=== PATIENT | female | born 1955 | race American Indian/Alaskan Native ===

== ENCOUNTER 2017-12-16 13:21 | Outpatient (CLI) | payer BC, OTHER ==
--- NOTE | 2017-12-16 14:15 | Mammography Report ---
Bilateral mammogram: The patient denies any current symptoms or other breast findings. The patient has a heterogeneously dense breasts asymmetrically denser in the upper outer right breast. There are scattered and loosely clustered calcifications bilaterally but significantly greater on the right than left. No suspicious shaped identified. There is a faint circumscribed density behind the left areola. Compared to prior exams dating back to 2014 there are no significant changes identified. CAD used. Impression: Stable breast pattern. No currently suspicious findings. Recommendation: Annual mammogram followup. Ultrasound not performed at this time due to lack of symptoms and no interval change in mammogram. This was explained to the patient. BI-RADS CATEGORY: 2 = Benign ACR BI-RADS MAMMOGRAPHIC CODES: 0 = Needs additional imaging evaluation; 1 = Negative; 2 = Benign; 3 = Probably benign; 4 = Suspicious; 5 = Malignant; 6 = Known biopsy-proven malignancy COMMENT: 1. Dense breast tissue, i.e., adenosis, fibrocystic changes, etc., may obscure an underlying neoplasm. 2. Approximately 10% of cancers are not detected with mammography. 3. A negative mammography report should not delay biopsy if a clinically suspicious mass is present.
== END 2017-12-16 13:22 | disposition home or self-care (01) ==
LOC: SPVWC 13:21
PROVIDERS: ATTEND Family Medicine
DX: N63.0 Unspecified lump in unspecified breast (principal); R92.1 Mammographic calcification found on diagnostic imaging of breast
CPT/HCPCS: 77066

== ENCOUNTER 2018-12-23 08:07 | Outpatient (CLI) | payer BC ==
--- NOTE | 2018-12-23 10:06 | Mammography Report ---
BILATERAL DIGITAL SCREENING MAMMOGRAM with CAD : 12/23/18 08:07:00 CLINICAL: Routine screening. COMPARISON:12/16/17 and mammograms going back to 05/16/14 FINDINGS: The breasts are heterogeneously dense, which may obscure small masses.An oval partially circumscribed 2.4 cm low-density left retroareolar mass is not significantly changed compared to previous exams. Bilateral scattered benign calcifications. No new mass, architectural distortion or suspicious calcifications. IMPRESSION: No mammographic evidence of malignancy. BI-RADS CATEGORY: 2 -- Benign RECOMMENDATION: Routine mammographic screening in one year. COMMENT: Patient follow-up letters are generated by our [employer] application.
== END 2018-12-23 08:08 | disposition home or self-care (01) ==
LOC: SPVWC 08:07
PROVIDERS: ATTEND Family Medicine
DX: Z12.31 Encounter for screening mammogram for malignant neoplasm of breast (principal)
CPT/HCPCS: 77067

== ENCOUNTER 2019-05-19 10:23 | Outpatient (CLI) | payer BC ==
--- NOTE | 2019-05-19 13:13 | Ultrasound Report ---
RIGHT DIGITAL DIAGNOSTIC MAMMOGRAM with CAD and RIGHT BREAST ULTRASOUND: 05/19/19 10:23:00 CLINICAL: Right palpable breast lump. COMPARISON:12/23/18 mammogram FINDINGS: The breasts are heterogeneously dense, which may obscure small masses.An irregular partially circumscribed 1.8 cm mass of the upper outer quadrant approximately 17 cm from the nipple correlates with the palpable lump felt by the patient. A second irregular 1.5 cm outer mass has better defined margins on the CC views. There are also new suspicious pleomorphic calcifications in the outer breast. The span of calcifications in best imaged on a spot CC view and they span at least 7 cm. Ultrasound of the right breast (including all four quadrants and the retroareolar area) was performed. An irregular solid hypoechoic palpable mass at 10 o'clock 8 cm from the nipple measures 1.3 x 1.4 x 1.2 cm and correlates with the more anterior mammographic mass. An oval slightly irregular solid hypoechoic mass at 10 o'clock 14 cm from the nipple correlates with what the patient feels. It measures 1.7 x 1.2 x 1.3 cm. This correlates with the larger and more posterior mammographic mass. An oval relatively anechoic cyst at 6 o'clock 4 cm from the nipple measures 6 mm. A benign cyst at 8 o'clock 6 cm from the nipple measures 7 x 6 x 4 mm. Ultrasound of the right axilla demonstrated at least 2 abnormal suspicious lymph nodes with abnormal morphology and no central fat. The largest measures 1.5 x 1.3 x 1.0 cm. IMPRESSION: Two suspicious right breast masses and at least 2 suspicious right axillary lymph nodes. Additional suspicious calcifications in the outer breast. BI-RADS CATEGORY: 5 - - Highly Suggestive of Malignancy RECOMMENDATION: Ultrasound guided needle biopsy of the 2 most suspicious masses. I discussed the findings and my recommendation (two needle core biopsies of the right breast) with the patient at the time of the examination. COMMENT: 1. Dense breast tissue, i.e., adenosis, fibrocystic changes, etc., may obscure an underlying neoplasm. 2. Approximately 10% of cancers are not detected with mammography. 3. A negative mammography report should not delay biopsy if a clinically suspicious mass is present. COMMENT: Patient follow-up letters are generated by our [employer] application. COMMENT: 1. Dense breast tissue, i.e., adenosis, fibrocystic changes, etc., may obscure an underlying neoplasm. 2. Approximately 10% of cancers are not detected with mammography. 3. A negative mammography report should not delay biopsy if a clinically suspicious mass is present. COMMENT: Patient follow-up letters are generated via our [employer] application.
== END 2019-05-19 10:24 | disposition home or self-care (01) ==
LOC: SPVWC 10:23
PROVIDERS: ATTEND Family Medicine
DX: N63.10 Unspecified lump in the right breast, unspecified quadrant (principal)

== ENCOUNTER 2019-05-31 13:13 | Outpatient (CLI) | payer BC, MEDICARE ==
--- NOTE | 2019-05-31 15:32 | Ultrasound Report ---
ULTRASOUND-GUIDED RIGHT BREAST BIOPSY WITH MARKER AT 2 SITES HISTORY: Right breast masses. CONSENT: Informed written consent obtained. PROCEDURE: The 2 previously described right upper outer breast masses were identified by ultrasound. The skin wa s cleansed with chlorhexidine. Using ultrasound guidance, 1% lidocaine for skin and superficial anest hesia and 2% lidocaine with epinephrine for deep anesthesia, a 14-gauge biopsies were performed at 10 :00 8 cm from the nipple and at 10:00 14 cm from the nipple. Multiple cores were obtained using a 14- gauge achieve biopsy device and specimens were placed in formalin. Hemostasis was achieved with minim al effort and sterile dressings were applied. The patient tolerated the procedure well and there were no apparent complications. A postprocedure mammogram demonstrated satisfactory clip deployment at 2 sites. IMPRESSION Technically successful and uncomplicated ultrasound-guided right breast needle biopsy with marker tony cement at 2 sites. Signer Name: Guille Maxwell MD Signed: 05/31/2019 4:27 PM Workstation Name: [id number]
--- NOTE | 2019-05-31 15:33 | Mammography Report ---
RIGHT BREAST DIAGNOSTIC MAMMOGRAM HISTORY: RT POST CLIP COMPARISON: 05/31/2019 FINDINGS: Biopsy clips are identified within masses at 10:00 8 cm from the nipple and at 10:00 14 cm from the n ipple.IMPRESSION Concordant clip placement after ultrasound guided needle biopsy at 2 sites. BIRADS 5: Highly suggestive of malignancy Signer Name: Guille Maxwell MD Signed: 05/31/2019 4:29 PM Workstation Name: [id number]
== END 2019-05-31 13:14 | disposition home or self-care (01) ==
LOC: SPVWC 13:13
PROVIDERS: ATTEND Surgery
DX: C50.411 Malignant neoplasm of upper-outer quadrant of right female breast (principal); Z79.899 Other long term (current) drug therapy
CPT/HCPCS: 19083; 19084; 77065; 88305; 88342; A4648; 88341

== ENCOUNTER 2019-06-14 14:26 | Outpatient (CLI) | payer MEDICARE | END 2019-06-14 14:27 | disposition home or self-care (01) | LOC: LABHHL 14:26 | PROVIDERS: ATTEND Surgery | DX: D36.0 Benign neoplasm of lymph nodes (principal) | CPT/HCPCS: 88305; 88341; 88342 ==

== ENCOUNTER 2019-06-21 09:40 | Outpatient (CLI) | payer MEDICARE ==
--- NOTE | 2019-06-22 13:06 | Magnetic Resonance Report ---
BILATERAL BREAST MR WITHOUT AND WITH GADOLINIUM INDICATION: Newly diagnosed right breast cancer. Status post ultrasound-guided biopsy of breast mass es at 10:00 8 cm from the nipple and at 10:00 14 cm from the nipple on 06/17/2019. Pathology: Invasive carcinoma NOS with overall grade III. Both lesions have identical pathology. COMPARISONS: 05/19/2019 and 12/23/2018 mammograms TECHNIQUE: Axial 1.0 mm T1 without, axial high-resolution 2.0 mm T2 and axial 1.0 mm dynamic vibrant high-resolution postcontrast T1 fat saturation sequences on a 1.5 Kindra magnet. The examination was p erformed with an 8-channel dedicated [place] breast coil. Post-processing with CAD and subtraction was performed on an Design [employer] workstation. 20 cc of MultiHance was injected without incident for the con trast portion of the exam. Consent was obtained prior to the administration of the contrast. FINDINGS: RIGHT BREAST: Marked background parenchymal enhancement. Lesion 1 is an irregular enhancing mass in t he upper outer quadrant 14.7 cm from the nipple measuring 2.2 x 1.7 x 2.5 cm. It contains a biopsy cl ip and correlates with the previously biopsied lesion farthest from the nipple. It demonstrates heter ogeneous enhancement with mixed kinetics, 172% peak enhancement and 46% type III washout. Lesion 2 is an irregular enhancing mass in the upper outer quadrant 9.2 cm from the nipple measuring 1.6 x 1.6 x 1.4 cm. It demonstrates heterogeneous enhancement with mixed kinetics, 131% peak enhancement and 31% type III washout.Too numerous to count enhancing masses are identified in the upper outer quadrant a nd these masses have similar enhancement patterns as the 2 known cancers. The mass closest to the nip ple is approximately 6 cm from the nipple and measures 1.1 x 0.7 x 0.6 cm. The masses span approximat ko 11 cm in the AP dimension. Several right axillary lymph nodes have suspicious morphology. The largest measures 1.7 x 0.7 cm and there is adjacent biopsy clip. This lymph node correlates with the previous metastatic lymph node whi ch was biopsied by Dr. Lomeli on 06/14/2019. LEFT BREAST: Mild background parenchymal enhancement. No mass or suspicious enhancement. A benign int ramammary lymph node at 12:00 5 cm from the nipple measures 4 x 3 x 2 mm. No suspicious left axillary or left internal mammary lymph nodes. IMPRESSION: 1. Multicentric right breast cancer with too numerous to count masses in the upper outer quadrant. 2. Right axillary lymph node metastasis. 3. Negative left breast and no suspicious left axillary or left internal mammary lymph nodes. BI-RADS 6 -- Known Cancer Signer Name: Guille Maxwell MD Signed: 06/22/2019 1:02 PM Workstation Name: [id number]
== END 2019-06-21 09:41 | disposition home or self-care (01) ==
LOC: SPVIMAG 09:40
PROVIDERS: ATTEND Surgery
DX: C77.3 Secondary and unspecified malignant neoplasm of axilla and upper limb lymph nodes (principal); C50.411 Malignant neoplasm of upper-outer quadrant of right female breast
CPT/HCPCS: A9577; C8908; 77049

== ENCOUNTER 2019-06-23 09:01 | Day surgery (SDC) | payer MEDICARE ==
[2019-06-23] MEDS ORDERED: MARCAINE 0.25% INFILTRATI ONE ×3 (09:23→11:32)
[2019-06-23] MEDS ORDERED: NACL 0.9% 100 ML ONE (09:23)
[2019-06-23] MEDS ORDERED: HEPARIN 10,000 UNITS/10 ML ONE (09:23)
[2019-06-23] MEDS ORDERED: XYLOCAINE 1% 20 mL ONE (09:24)
--- NOTE | 2019-06-23 09:53 | Anesthesia Consultation ---
Anesthesia Consult and Med Hx Date of service: 06/23/19 - Airway Anesthetic Teeth Evaluation: Good ROM Head & Neck: Adequate Mental/Hyoid Distance: Adequate Mallampati Class: Class II Intubation Access Assessment: Good - Pulmonary Exam CTA: Yes - Cardiac Exam Cardiac Exam: RRR - Pre-Operative Health Status ASA Pre-Surgery Classification: ASA2 Proposed Anesthetic Plan: MAC (Pt with breast Ca for port placement under MAC) - Pulmonary Hx Smoking: No Hx Sleep Apnea: No (SUHAIL PRE SCREEN LOW RISK) - Cardiovascular System Hx Hypertension: Yes (WAS GIVEN RX , BUT NEVER STARTED IT) - Hematic Hx Anemia: Yes (NOT RECENT)
--- NOTE | 2019-06-23 09:54 | Anesthesia Day of Surgery ---
Anesthesia Day of Surgery - Day of Surgery Patient Examined: Yes Patient H&P Reviewed: Yes Patient is NPO: Yes
[2019-06-23] MEDS ORDERED: DILAUDID IV PRN (09:55)
[2019-06-23] MEDS ORDERED: VERSED IV NR (10:00)
[2019-06-23] MEDS ORDERED: LACTATED RINGERS 1,000 ML IV SCH (10:00)
[2019-06-23] MEDS ORDERED: XYLOCAINE MPF 2% ONE (10:16)
[2019-06-23] MEDS ORDERED: ZOFRAN ONE (10:16)
[2019-06-23] MEDS ORDERED: DIPRIVAN 10 MG/ML IV ONE (10:17)
[2019-06-23] MEDS ORDERED: SUBLIMAZE ONE (10:18)
[2019-06-23] MEDS ORDERED: DECADRON ONE (11:28)
[2019-06-23] MEDS ORDERED: ANCEF/STERILE WATER 2 GM/20 ML IV NR (11:30)
[2019-06-23] MEDS ORDERED: XYLOCAINE 1% 20 mL INFILTRATI ONE ×2 (11:32)
[2019-06-23] MEDS ORDERED: NACL 0.9% IV ONE (11:45)
[2019-06-23] MEDS ORDERED: HEPARIN 10,000 UNITS/10 ML IV ONE (11:45)
[2019-06-23] MEDS ORDERED: HEPARIN 10,000 UNITS/10 ML IR ONE (12:10)
[2019-06-23] MEDS ORDERED: TORADOL ONE (12:12)
[2019-06-23] MEDS ORDERED: NEO SYNEPHRINE ONE (12:12)
--- NOTE | 2019-06-23 13:03 | Fluoroscopy Report ---
CHEST 1 VIEW INDICATION / CLINICAL INFORMATION: RT BREAST CANCER. Port placement. COMPARISON: None available. FINDINGS: SUPPORT DEVICES: Left Port-A-Cath has been placed with the tip projecting over the right atrium. HEART / MEDIASTINUM: No significant abnormality. LUNGS / PLEURA: No significant pulmonary or pleural abnormality. No pneumothorax. ADDITIONAL FINDINGS: No significant additional findings. IMPRESSION: 1. Left Port-A-Cath in expected position. Signer Name: Vicky Bishop MD Signed: 06/23/2019 12:59 PM Workstation Name: [id number]
[2019-06-23 13:27] VITALS: BP 128/90
--- NOTE | 2019-06-23 13:37 | Short Stay Summary ---
Short Stay Documentation Date of service: 06/23/19 - History Principal diagnosis: breast cancer - Allergies and Medications Current Medications: Allergies No Known Allergies Allergy (Verified 06/22/19 09:18) Home Medications Medication Instructions Recorded Confirmed Last Taken Type No Known Home Medications [No 06/22/19 06/22/19 Unknown History Reported Home Medications] Active Medications Cefazolin Sodium (Ancef/Sterile Water 2 Gm/20 Ml) 2 gm IV PREOP NR Stop: 06/23/19 20:00 Hydromorphone HCl (Dilaudid) 0.5 mg IV Q10MIN PRN PRN Reason: Pain , Severe (7-10) Stop: 06/23/19 20:00 Lactated Ringer's (Lactated Ringers) 1,000 mls @ 100 mls/hr IV DIRECT TYRON Last Admin: 06/23/19 10:15 Dose: 100 mls/hr Documented by: Midazolam HCl (Versed) 2 mg IV PREOP NR Stop: 06/23/19 23:59 Last Admin: 06/23/19 10:15 Dose: 2 mg Documented by: - Brief post op/procedure progress note Date of procedure: 06/23/19 Pre-op diagnosis: breast cancer Post-op diagnosis: same Procedure: left sided internal jugular port a cath placement with mindray ultrasound guidance Anesthesia: GETA, local Findings: good placement of port without PTX Surgeon: ANNA IRVING Estimated blood loss: minimal Pathology: none Condition: stable - Hospital course Hospital course: Pt observed in PACU and discharged to home in stable condition when criteria met - Disposition Condition at discharge: Good Disposition: DC-01 TO HOME OR SELFCARE Short Stay Discharge Plan Activity: no restrictions Diet: regular Wound: open to air, per your surgeon's advice Additional Instructions: KEEP DRESSING CLEAN AND DRY. WOUND OPEN TO AIR. DO NOT RUB OR SCRUB , INCISION SITE.NO POOLS OR LAKES OR BATH. MAY SHOWER AND WASH HAIR. CALL FOR F/U APPT. Follow up with: SHORTY RUSS MD [Primary Care Provider] - 7 Days ANNA IRVING DO [Staff Physician] - 10 Days Forms: Outpatient Surgery DC Inst. Prescriptions: HYDROcodone/APAP 5-325 [[place] 5/325] 1 each PO Q4HR PRN #20 tablet PRN Reason: Pain
--- NOTE | 2019-06-23 17:49 | Post Anesthesia Evaluation ---
- Post Anesthesia Evaluation Patient Participated: Yes Airway Patent: Yes Stable Respiratory Function: Yes Nausea/Vomiting: No Temp > 96.8F: Yes Pain Manageable: Yes Adequeate Hydration: Yes Anesthesia Complications: No Block Receding Appropriately: Not Applicable Patient on Ventilator: No
--- NOTE | 2019-06-28 12:27 | Operative Report ---
PREOPERATIVE DIAGNOSIS: Breast cancer. POSTOPERATIVE DIAGNOSIS: Breast cancer. PROCEDURE: Left-sided internal jugular Port-A-Cath placement with Mindray ultrasound guidance. ANESTHESIA: General endotracheal anesthesia, local. FINDINGS: Good placement of port without pneumothorax and postop chest x-ray. SURGEON: Bree Alexandre DO. ESTIMATED BLOOD LOSS: Minimal. PATHOLOGY: None. CONDITION AND DISPOSITION: The patient is stable to PACU. HISTORY OF PRESENT ILLNESS AND INDICATION: The patient is a 64-year-old female who was recently diagnosed with right-sided breast cancer with positive lymph node and tumor markers, who presented to the surgery clinic for evaluation of Port-A-Cath placement. Her oncologist is Dr. Thorpe and her breast surgeon is Dr. Lomeli. She was scheduled to start chemotherapy next week. The risks, benefits and alternatives to port placement were discussed with the patient as well as the technique. All the patient's questions were answered and consent obtained. PROCEDURE IN DETAIL: The patient was identified in the preoperative area, taken back to the operating room and placed on the operating table in supine position. After anesthesia was induced, both arms were tucked, all bony prominences padded and a shoulder roll placed. The bilateral upper chest and neck were prepped and draped in the usual sterile fashion. A timeout was performed. The patient was placed in Trendelenburg position. Using ultrasound guidance, the left subclavian vein was identified. Local anesthetic was infiltrated into the skin and subcutaneous tissue at the intended puncture site. The subclavian vein was accessed on the first stick; however, there was very sluggish dark red blood flow. There was no pulsation. The wire was threaded, however, could not be advanced without resistance. Therefore, the needle and wire were removed. An additional attempt was made to access the subclavian vein, which was accessed again on the second attempt; however, again the blood flow was very sluggish. There was return of dark red nonpulsatile blood. The wire was attempted to be threaded but could not be threaded without resistance; therefore, the wire and needle were removed and pressure was held at the site for several minutes. There was no bleeding from the puncture site. I then identified the left internal jugular vein under ultrasound guidance. The vein was identified and was very easily collapsible. The vein was accessed on the first stick. There was return of dark red nonpulsatile blood. The wire was threaded without resistance and position confirmed using fluoroscopy. The needle was then removed and the wire affixed to the drapes using hemostat. Local anesthetic was infiltrated into the left upper chest at the intended incision site and a 4-cm horizontal incision was made in the skin. The dissection was carried down through the skin and subcutaneous tissue using Bovie electrocautery and a pocket was created for the port directly above the prepectoral fascia. Once the pocket was created, it checked for hemostasis, which was carefully ensured. The tunneler and the catheter was then tunneled from the pocket to the wire and the dilator breakaway catheter sheath was then inserted over the wire and passed and the tract dilated using fluoroscopy. The dilator and wire were then removed and the catheter placed through the breakaway catheter sheath as the breakaway catheter was removed. The catheter was seen to lay flush under the skin. It was pulled back under fluoroscopic guidance to ensure that the tip was in the superior vena cava. The catheter was then cut to size and the port assembled in the usual fashion. The port was tested with heparinized saline. There was return of dark red blood and the port flushed easily. The port was then placed in the pocket and sutured to the prepectoral fascia in two locations using 2-0 Vicryl interrupted sutures. The port was once again tested and did return blood and flushed easily. The port was then instilled with 3000 units of heparin. The wound was irrigated and hemostasis ensured. The deep dermal layer was then closed with 3-0 Vicryl interrupted stitches. The skin incisions were closed with 4-0 Monocryl subcuticular stitches and skin glue. At the end of the case, all sponge, instrument, and sharp counts were correct x 2. The postoperative chest x-ray was obtained, which showed the port in good positioning without pneumothorax. The patient was awoken from anesthesia and taken to PACU in stable condition. JOB# [id number] RILEY/PAT GOODWIN
== END 2019-06-23 14:20 | disposition home or self-care (01) ==
LOC: OR 09:01
PROVIDERS: ATTEND Surgery
DX: C50.911 Malignant neoplasm of unspecified site of right female breast (principal); I10 Essential (primary) hypertension; Z98.890 Other specified postprocedural states; Z79.899 Other long term (current) drug therapy; Z86.2 Personal history of diseases of the blood and blood-forming organs and certain disorders involving the immune mechanism
CPT/HCPCS: 36561; 77001; C1769; C1788; J1100; J1644; J1885; J2250; J2370; J2405; J2704; J3010; J7120

== ENCOUNTER 2019-07-20 09:20 | Outpatient (CLI) | payer BC, MEDICARE ==
--- NOTE | 2019-07-20 11:13 | Ultrasound Report ---
LIMITED RUQ ABDOMINAL ULTRASOUND INDICATION: ELEVATED LIVER ENZYMES/C50.411: Malignant neoplasm of upper-outer. COMPARISON: No relevant prior imaging study available. FINDINGS: Pancreas: Visualized portions show no significant abnormality. Abdominal Aorta: No significant abnormality. IVC: No significant abnormality. Liver: The liver measures 15 cm in length. The liver parenchyma is slightly echogenic consistent wit h mild diffuse fatty infiltration. No focal liver lesion.. Normal hepatopedal blood flow in the main portal vein. Gallbladder: No significant abnormality. Bile ducts: No significant abnormality. Common bile duct measures 2 mm. Right kidney: A 2.3 x 2.8 cm cyst is noted at the inferior pole of the right kidney. No parenchymal d isease or hydronephrosis.. Free fluid: None. Additional Findings: None. IMPRESSION: Mild fatty infiltration throughout the liver. Right renal cyst.. Signer Name: Robin Bruno Jr, MD Signed: 07/20/2019 11:08 AM Workstation Name: [id number]
== END 2019-07-20 09:21 | disposition home or self-care (01) ==
LOC: US 09:20
PROVIDERS: ATTEND Internal Medicine Hematology & Oncology
DX: Z51.11 Encounter for antineoplastic chemotherapy (principal); K76.0 Fatty (change of) liver, not elsewhere classified; N28.1 Cyst of kidney, acquired
CPT/HCPCS: 76705

== ENCOUNTER 2019-10-14 07:48 | Day surgery (SDC) | payer MEDICARE, OTHER ==
--- NOTE | 2019-10-14 08:20 | Anesthesia Day of Surgery ---
Anesthesia Day of Surgery - Day of Surgery Patient Examined: Yes Patient H&P Reviewed: Yes Patient is NPO: Yes
--- NOTE | 2019-10-14 08:25 | Anesthesia Consultation ---
Anesthesia Consult and Med Hx Date of service: 10/14/19 - Airway Anesthetic Teeth Evaluation: Good ROM Head & Neck: Adequate Mental/Hyoid Distance: Adequate Mallampati Class: Class II Intubation Access Assessment: Good - Pre-Operative Health Status ASA Pre-Surgery Classification: ASA2 Proposed Anesthetic Plan: General (MAC; GA if needed), MAC - Cardiovascular System Hx Hypertension: Yes (NO MEDS) - Central Nervous System Hx Psychiatric Problems: No - Hematic Hx Anemia: Yes (LAST HGB 10.9 (10/08/19)) - Other Systems Hx Alcohol Use: Yes (ONCE OR TWICE/YEAR (WINE)) Hx Substance Use: No Hx Cancer: Yes (R breast; still on chemo and had it yesterday)
[2019-10-14] MEDS ORDERED: LIDOCAINE (1%) 10 MG/1 ML VIAL 20 ML MDV ONE (08:53)
[2019-10-14] MEDS ORDERED: BUPIVACAINE/PF (0.25%) 2.5 MG/ML 30 ML VIAL INFILTRATI ONE (08:54)
[2019-10-14] MEDS ORDERED: LACTATED RINGERS 1,000 ML ONE (09:04)
[2019-10-14] MEDS ORDERED: ceFAZolin/STERILE WATER 2 GM/20 ML SYRINGE IV NR (10:00)
[2019-10-14] MEDS ORDERED: LACTATED RINGERS 1,000 ML IV SCH (10:00)
[2019-10-14] MEDS ORDERED: PROPOFOL 200 MG/20 ML VIAL IV ONE (10:16)
[2019-10-14] MEDS ORDERED: fentaNYL 100 MCG/2 ML INJ ONE (10:16)
[2019-10-14] MEDS ORDERED: LIDOCAINE MPF (2%) 20 MG/1 ML VIAL 5 ML ONE (10:17)
[2019-10-14] MEDS ORDERED: BUPIVACAINE/PF (0.5%) 5 MG/1 ML 30 ML VIAL INFILTRATI ONE (10:42)
[2019-10-14] MEDS ORDERED: LIDOCAINE (1%) 10 MG/1 ML VIAL 20 ML MDV INFILTRATI ONE (10:42)
[2019-10-14] MEDS ORDERED: SODIUM CHLORIDE 0.9% IRR 1,500 ML BOTTLE IR ONE (10:44)
[2019-10-14] MEDS ORDERED: PHENYLEPHRINE/NS 1,000 MCG/10 ML SYRINGE (OR USE) IV ONE (11:05)
--- NOTE | 2019-10-14 11:06 | Short Stay Summary ---
Short Stay Documentation Date of service: 10/14/19 - History Principal diagnosis: breast cancer H&P: obtained from office - Allergies and Medications Current Medications: Allergies No Known Allergies Allergy (Verified 10/11/19 14:31) Home Medications Medication Instructions Recorded Confirmed Last Taken Type HYDROcodone/APAP 5-325 [[place] 1 each PO Q4HR PRN #20 tablet 06/23/19 10/11/19 Unknown Rx 5/325] Cholecalciferol (Vitamin D3) 2,000 unit PO QDAY 10/11/19 10/14/19 10/13/19 09:00 History [Vitamin D3 2,000 UNIT CAP] Cyanocobalamin (Vitamin B-12) 5,000 mcg PO QDAY 10/11/19 10/14/19 10/13/19 09:00 History [Vitamin B-12] Promethazine [Phenergan] 25 mg PO Q6HR PRN 10/11/19 10/11/19 Unknown History dexAMETHasone [Decadron] 4 mg PO ONCE 10/11/19 10/14/19 10/13/19 09:00 History Active Medications Cefazolin Sodium (Ancef/Sterile Water 2 Gm/20 Ml) 2 gm IV PREOP NR Stop: 10/14/19 21:00 Lactated Ringer's (Lactated Ringers) 1,000 mls @ 75 mls/hr IV DIRECT TYRON Last Admin: 10/14/19 09:10 Dose: 75 mls/hr Documented by: - Brief post op/procedure progress note Date of procedure: 10/14/19 Pre-op diagnosis: breast cancer Post-op diagnosis: same Procedure: removal of left sided port Anesthesia: MAC, local Findings: No obvious infection. Surgeon: ANNA IRVING Estimated blood loss: minimal Pathology: list (port and catheter) Specimen disposition: to lab Condition: stable - Hospital course Hospital course: Pt observed in PACU and discharged to home in stable condition - Disposition Condition at discharge: Good Disposition: DC-01 TO HOME OR SELFCARE Short Stay Discharge Plan Activity: no restrictions Diet: regular Wound: per your surgeon's advice Additional Instructions: SEE PRINTED DISCHARGED INSTRUCTIONS Follow up with: SHORTY RUSS MD [Primary Care Provider] - 7 Days ANNA IRVING DO [Staff Physician] - 10 Days Prescriptions: HYDROcodone/APAP 5-325 [[place] 5-325 mg TAB] 1 each PO Q6H PRN #10 tablet PRN Reason: Pain
[2019-10-14] MEDS ORDERED: HYDROcodone/ACETAMINOPHEN 5-325 MG TAB PO PRN (11:47)
[2019-10-14 12:02] VITALS: BP 133/86
--- NOTE | 2019-10-16 12:48 | Operative Report ---
PREOPERATIVE DIAGNOSIS: Breast cancer. POSTOPERATIVE DIAGNOSIS: Breast cancer. PROCEDURE: Removal of left-sided port. ANESTHESIA: MAC local. FINDINGS: No obvious infection. SURGEON: Bree Alexandre DO ESTIMATED BLOOD LOSS: Minimal. PATHOLOGY: Port and catheter. SPECIMEN DISPOSITION: To lab. CONDITION DISPOSITION: The patient is stable to PACU. HISTORY OF PRESENT ILLNESS AND INDICATION: The patient is a 64-year-old female who has been diagnosed with breast cancer. She had a left-sided port placed several months ago through which she has been receiving chemotherapy. So far, the patient has received her 6 neoadjuvant treatments and is being scheduled to undergo mastectomy with reconstruction. The patient during her course of chemotherapy developed a hematoma around the port site, which became infected. She was treated adequately with antibiotics; however, still has residual paresthesias in the skin associated with the port. The patient was in a significant amount of pain due to these paresthesias and therefore after discussion with Dr. Lomeli, the patient's breast surgeon and Dr. Thorpe, the patient's oncologist, it was decided to remove the port at this stage and allow the area to heal. The patient would eventually need a replacement for the port. All risks, benefits, alternatives to surgery were discussed with the patient and questions answered. Consent was obtained. PROCEDURE IN DETAIL: The patient was identified in the preoperative area, taken back to the operating room and placed on the operating table in supine position. After anesthesia was induced, the left upper chest and neck were prepped and draped in the usual sterile fashion and timeout was performed. The patient was placed in slight Trendelenburg position. The skin was anesthetized with local anesthetic and an incision was made over the old left upper chest scar using a 15 blade. Dissection was carried down carefully through the subcutaneous tissue using a hemostat until the port was identified. The port tubing was grasped between 2 hemostats and cut. The catheter was then removed and pressure held over the internal jugular vein for approximately 10 minutes. There was no bleeding seen. The subcutaneous portion of the port was then dissected free from the surrounding tissue and its capsule and removed. The 2 pieces of the port were then passed off the table as a specimen. There was some serosanguineous fluid contained in the pocket; however, no obvious gross signs of infection. No hematoma. The wound was irrigated with copious amount of saline. Due to the fact that the patient had a previous infection at this area, it was decided to loosely approximate the skin. Once hemostasis was carefully ensured, the skin was loosely approximated using interrupted 3-0 nylon sutures. Three sutures were placed and in between the sutures, a piece of Telfa wick was placed. Two total Telfa asad were placed. The skin was then cleansed and a 2 x 2 gauze and a Tegaderm was placed. At the end of the case, all sponge, instrument, sharp counts were correct x 2. The patient was awoken from anesthesia and taken to PACU in stable condition. JOB# [id number] RILEY/PAT
== END 2019-10-14 07:49 | disposition home or self-care (01) ==
LOC: OR 07:48
PROVIDERS: ATTEND Surgery
DX: C50.919 Malignant neoplasm of unspecified site of unspecified female breast (principal); G62.9 Polyneuropathy, unspecified; E78.00 Pure hypercholesterolemia, unspecified; I10 Essential (primary) hypertension; Z90.49 Acquired absence of other specified parts of digestive tract; Z79.899 Other long term (current) drug therapy; Z72.89 Other problems related to lifestyle; Z80.3 Family history of malignant neoplasm of breast; Z98.890 Other specified postprocedural states; Z86.2 Personal history of diseases of the blood and blood-forming organs and certain disorders involving the immune mechanism
CPT/HCPCS: 36590; 88300; J2370; J2704; J3010; J7120; 88302

== ENCOUNTER 2019-10-19 14:33 | Outpatient (CLI) | payer MEDICARE | END 2019-10-19 14:34 | disposition home or self-care (01) | LOC: LABHHL 14:33 | PROVIDERS: ATTEND Surgery | DX: L03.313 Cellulitis of chest wall (principal) | CPT/HCPCS: 87076; 87116; 87186 ==

== ENCOUNTER 2019-12-15 10:12 | Observation (INO) | payer MEDICARE ==
--- NOTE | 2019-12-14 10:21 | Anesthesia Consultation ---
Anesthesia Consult and Med Hx Date of service: 12/15/19 - Airway Anesthetic Teeth Evaluation: Good ROM Head & Neck: Adequate Mental/Hyoid Distance: Adequate Mallampati Class: Class I Intubation Access Assessment: Good - Pre-Operative Health Status ASA Pre-Surgery Classification: ASA2 Proposed Anesthetic Plan: General Nerve Block: PEC - Cardiovascular System Hx Hypertension: Yes (NO MEDS. 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
[~2019-12-15 10:12] MED LIST: BACITRACIN 50,000 UNIT VIAL IR ONE; BACITRACIN 50,000 UNIT VIAL ONE; CELECOXIB 200 MG CAP PO NR; GABAPENTIN 300 MG CAP PO NR; GENTAMICIN 40 MG/ML VIAL 2 ML IV ONE; GENTAMICIN 40 MG/ML VIAL 2 ML ONE; METHYLENE BLUE 50 MG/10 ML AMP IRRIGATION ONE; METHYLENE BLUE 50 MG/10 ML AMP ONE; MIDAZOLAM 2 MG/2 ML INJ IV NR; SODIUM CHLORIDE 0.9% 1000 ML 1,000 ML ONE; SODIUM CHLORIDE 0.9% 1000 ML IV SOLN IR ONE; SODIUM CHLORIDE 0.9% IRR 1,500 ML BOTTLE IR ONE; WATER FOR IRRIG STERILE 1,500 ML BOTTLE IR ONE; ceFAZolin 1 GM VIAL IV ONE; ceFAZolin 1 GM VIAL ONE; ceFAZolin/Water 2 GM/20 ML 2 GM/20 ML SYRINGE IV NR; fentaNYL 100 MCG/2 ML INJ IV PRN
--- NOTE | 2019-12-15 10:43 | Anesthesia Day of Surgery ---
Anesthesia Day of Surgery - Day of Surgery Patient Examined: Yes Patient H&P Reviewed: Yes Patient is NPO: Yes
[2019-12-15] MEDS ORDERED: dexAMETHasone 4 MG/ML VIAL ONE (10:46)
[2019-12-15] MEDS ORDERED: BUPIVACAINE-EPINEPHRINE/PF 0.25%-1:200,000 (30 ML) VIAL INFILTRATI ONE (10:46)
[2019-12-15] MEDS: LACTATED RINGERS 1,000 ML IV SCH ×2 (11:00→23:23)
[2019-12-15] MEDS ORDERED: LIDOCAINE 1%/EPINEPHRINE 1:100,000 VIAL (20 ML) INFILTRATI ONE (11:50)
[2019-12-15] MEDS ORDERED: BUPIVACAINE/PF (0.25%) 2.5 MG/ML 30 ML VIAL INFILTRATI ONE (11:50)
[2019-12-15] MEDS ORDERED: SODIUM CHLORIDE 0.9% 100 ML ONE (11:51)
[2019-12-15] MEDS ORDERED: ROCURONIUM 50 MG/5 ML INJ IV ONE (11:53)
[2019-12-15] MEDS ORDERED: ONDANSETRON 4 MG/2 ML INJ ONE ×2 (11:53→18:05)
[2019-12-15] MEDS ORDERED: LIDOCAINE MPF (2%) 20 MG/1 ML VIAL 5 ML ONE (11:53)
[2019-12-15] MEDS ORDERED: HYDROmorphone 1 MG/1 ML INJ ONE (11:53)
[2019-12-15] MEDS ORDERED: dexAMETHasone 20 MG/5 ML VIAL ONE (11:53)
[2019-12-15] MEDS ORDERED: propofoL 200 MG/20 ML VIAL IV ONE (11:54)
[2019-12-15] MEDS ORDERED: METHYLENE BLUE 50 MG/10 ML AMP IRRIGATION ONE (13:00)
[2019-12-15] MEDS ORDERED: WATER FOR IRRIG STERILE 1,500 ML BOTTLE IR ONE (15:13)
[2019-12-15] MEDS ORDERED: LACTATED RINGERS 1,000 ML ONE ×2 (15:13→17:14)
[2019-12-15] MEDS ORDERED: GENTAMICIN 40 MG/ML VIAL 2 ML IV ONE (16:21)
[2019-12-15] MEDS ORDERED: BACITRACIN 50,000 UNIT VIAL IR ONE (16:21)
[2019-12-15] MEDS ORDERED: SODIUM CHLORIDE 0.9% IRR 1,500 ML BOTTLE IR ONE (16:21)
[2019-12-15] MEDS ORDERED: ceFAZolin 1 GM VIAL IV ONE (16:21)
[2019-12-15] MEDS ORDERED: SODIUM CHLORIDE 0.9% 1000 ML IV SOLN IR ONE (16:43)
--- NOTE | 2019-12-15 17:22 | Operative Report ---
Operative Report Operative Report: Operative Report: Date of Service: December 15, 2019 Preoperative diagnosis: Multifocal right breast cancer of the upper outer quadrant Postoperative diagnosis: Same Procedure: Right total mastectomy with sentinel lymph node biopsy followed by ALND and left total mastectomy Surgeon: Erma Lomeli M.D. Mastic Man: Mr. Stahl Anesthesia: Gen. Findings: Right breast clips present within right total mastectomy. 2 sentinel lymph nodes identified and positive for malignancy on frozen section of pathology and proceeded with right axillary lymph node dissection; bulky right axillary lymphadenpathy Complications: None Drains: Per plastic surgery Estimated blood loss: 200 cc Disposition: Plastic surgery proceeded with bilateral implant placement of bilateral tissue expanders Indications for operative procedure: This is a 64-year-old lady with stage II multifocal right breast cancer of the upper outer quadrant, Her-2 positive. She completed neoadjuvant chemotherapy and recommendations were to proceed with a right total mastectomy with SLNB with possible ALND. She wished to proceed with a prophylactic left mastectomy and placement of bilateral tissue expanders in conjunction with plastic surgery. She wished to proceed with the above procedure. Procedure in detail: The patient was taken to the operating room and was placed supine. Gen. anesthesia was administered. The right nipple was injected with radioisotope and 1 cc of methylene blue. Bilateral chest and axillas were prepped and draped in the normal sterile operative fashion. Timeout was performed. Typical mastectomy incision markings were made. Attention was taken toward the left breast first. First began raising of the superior flap to the level of the clavicle superiorly and posteriorly to the pectoralis muscle (medial superior flap to level of port given prior infection). Followed by raising of the medial flap to the level of the sternum and posteriorly to the pectoralis muscle. Followed by raising of the lateral flap to the level of the latissimus dorsi muscle and taken down posteriorly. Followed by raising of the inferior flap to the level of the inframammary fold taken posterior to the pectoralis muscle. The mastectomy/breast was removed from the pectoralis muscle without incident. The specimen was appropriately marked and sent to pathology. Hemostasis was obtained. Attention was taken towards the right breast. A gamma probe was inserted into the axilla to identify the sentinel lymph node location with uptake noted. Skin markings were made. A skin incision was made with a 10 blade knife and dissection taken down to the subcutaneous tissues. First began raising of the superior flap to the level of the clavicle superiorly and posteriorly to the pectoralis muscle. Followed by raising of the medial flap to the level of the sternum and posteriorly to the pectoralis muscle. Followed by raising of the lateral flap to the level of the latissimus dorsi muscle and taken down posteriorly. The gamma probe was inserted into the axilla, the axillary fascia was opened and 2 axillary lymph nodes were identified that were dissected free and sent to pathology. Patient with positive axillary lymph node prior to chemotherapy. Axillary lymph nodes were sent to pathology with findings positive for malignancy noted on frozen section of the first SLN and second SLN would then be processed permanently given ALND was indicated with first positive SLN for macrometastasis. Then proceeded with raising of the inferior flap to the level of the inframammary fold taken posterior to the pectoralis muscle. The mastectomy/breast was removed from the pectoralis muscle without incident. The specimen was appropriately marked and sent to radiology with findings of breast clips present and sent to pathology. Attention was then taken towards the right axilla. First began opening of the axillary fascia further. The lattismus dorsi muscle was identified and followed superiorly. Then proceeded with identification of the axillary vein followed by identification of the thoracodorsal bundle and long thoracic nerve. Axillary lymph nodes were then removed from the above boundaries with the aid of the bovie cautery in a sweeping-like motion and then sent to pathology. Axillary lymph nodes from level I and II were removed. Both nerves were identified and unharmed. Hemostasis was noted. The chest wall was irrigated and suctioned. Hemostasis was obtained. Plastic surgery then proceeded with placement of bilateral tissue expanders.
--- NOTE | 2019-12-15 17:25 | Short Stay Summary ---
Short Stay Documentation Date of service: 12/15/19 - History H&P: obtained from office - Allergies and Medications Current Medications: Allergies No Known Allergies Allergy (Verified 12/07/19 15:28) Home Medications Medication Instructions Recorded Confirmed Last Taken Type RX: Cholecalciferol (Vitamin D3) 2,000 unit PO QDAY 10/11/19 12/15/19 12/12/19 09:00 History [Vitamin D3 2,000 UNIT CAP] RX: Cyanocobalamin (Vitamin B-12) 5,000 mcg PO QDAY 10/11/19 12/15/19 12/12/19 09:00 History [Vitamin B-12] RX: Promethazine [Phenergan] 25 mg PO Q6HR PRN 10/11/19 12/15/19 12/12/19 09:00 History RX: HYDROcodone/APAP 5-325 [[place] 1 each PO Q6H PRN #10 tablet 10/14/19 12/15/19 12/12/19 09:00 Rx 5-325 mg TAB] Ascorbic Acid [Vitamin C] 500 mg PO QDAY 12/07/19 12/15/19 12/12/19 09:00 History Active Medications Celecoxib (Celebrex) 200 mg PO PREOP NR Stop: 12/15/19 23:00 Last Admin: 12/15/19 10:50 Dose: 200 mg Documented by: Fentanyl (Sublimaze) 100 mcg IV ONCE PRN PRN Reason: sedation for nerve block Last Admin: 12/15/19 11:17 Dose: 100 mcg Documented by: Gabapentin (Gabapentin) 300 mg PO PREOP NR Stop: 12/15/19 23:00 Last Admin: 12/15/19 10:50 Dose: 300 mg Documented by: Hydromorphone HCl (Dilaudid) 0.5 mg IV Q10MIN PRN PRN Reason: Pain , Severe (7-10) Stop: 12/15/19 23:00 Lactated Ringer's (Lactated Ringers) 1,000 mls @ 100 mls/hr IV DIRECT TYRON Last Admin: 12/15/19 11:00 Dose: 100 mls/hr Documented by: Cefazolin Sodium (Ancef/Sterile Water 2 Gm/20 Ml) 2 gm in 20 mls @ 80 mls/hr IV PREOP NR; Protocol Stop: 12/15/19 23:59 Midazolam HCl (Versed) 2 mg IV PREOP NR Stop: 12/15/19 23:01 Last Admin: 12/15/19 11:17 Dose: 2 mg Documented by: - Brief post op/procedure progress note Date of procedure: 12/15/19 Pre-op diagnosis: Multifocal right breast cancer of UOQ Post-op diagnosis: same Procedure: Right MRM and left total mastectomy Anesthesia: GETA Findings: Positive SLNs and proceeded with an ALND; right mastectomy with clips present Surgeon: YANETH JACOBO Estimated blood loss: other (200 cc) Pathology: list Specimen disposition: to lab Condition: stable - Disposition Condition at discharge: Good Disposition: DC/TX-02 SHRT-TRM GEN HOSP IP Short Stay Discharge Plan Activity: other (no heavy lifting) Diet: regular Wound: keep clean and dry Follow up with: SHORTY RUSS MD [Primary Care Provider] - 7 Days YANETH JACOBO MD [Staff Physician] - 7 Days
[2019-12-15] MEDS ORDERED: ONDANSETRON 4 MG/2 ML INJ IV PRN (17:26)
[2019-12-15] MEDS ORDERED: oxyCODONE /ACETAMINOPHEN 5-325MG TAB PO PRN (17:26)
[2019-12-15] MEDS ORDERED: METOCLOPRAMIDE 10 MG TAB PO PRN (17:26)
[2019-12-15] MEDS ORDERED: ACETAMINOPHEN 325 MG TAB PO PRN (17:26)
[2019-12-15] MEDS ORDERED: diphenhydrAMINE 25 MG CAP PO PRN (17:26)
[2019-12-15] MEDS ORDERED: MORPHINE 2 MG/1 ML INJ IV PRN (17:28)
[2019-12-15] MEDS ORDERED: LACTATED RINGERS 1,000 ML IV SCH (18:00)
[2019-12-15] MEDS ORDERED: KETOROLAC 30 MG/1 ML INJ ONE (18:05)
[2019-12-15] MEDS: HYDROmorphone 1 MG/1 ML INJ IV PRN ×2 (18:35→18:46)
--- NOTE | 2019-12-15 18:46 | Operative Report ---
PREOPERATIVE DIAGNOSIS: Personal history of breast cancer, right. POSTOPERATIVE DIAGNOSIS: Personal history of breast cancer, right. PROCEDURE: Bilateral immediate breast reconstruction with placement of [place] Artoura 500 mL tissue expanders and FlexHD acellular dermal matrix bilateral. SURGEON: Dr. Eliazar Dumont. LEAD TINNER: MACIEL Borja. ANESTHESIA: General endotracheal tube anesthesia. DRAINS: COLTON x5. SPECIMENS: None. COMPLICATIONS: None. ESTIMATED BLOOD LOSS: Less than 20 mL. INDICATIONS: The patient is a 64-year-old woman who presents with known right-sided breast cancer for bilateral total mastectomy with a right-sided axillary lymph node dissection as performed by Dr. Lomeli. Following Dr. Lomeli's case, I presented to perform immediate breast reconstruction as previously consulted with the patient. We discussed viable options and ultimately decided to utilize a tissue bottle tester technique. She understands the staged nature of breast reconstruction and subsequent procedures may be required were deemed necessary including but not limited to tissue bottle tester exchange for a silicone implant. Nature of the surgery, technical aspects, typical recovery period and potential risks involved were discussed fully including but not limited to postop bleeding, infection, pronounced scar, hematoma or seroma formation, areas of paresthesias or numbness, delayed healing, implant leak, rupture, failure, exposure, need for replacement or removal, need for future surgery, capsular contracture, skin or tissue necrosis or postoperative pain. DESCRIPTION OF PROCEDURE: The patient was already anesthetized, prepped and draped. Dr. Lomeli had completed a bilateral mastectomy with right-sided axillary lymph node dissection. On each side, the pectoralis muscle was divided along its inferior and inferomedial aspect to develop a subpectoral pocket under direct vision. Throughout the case, meticulous hemostasis was achieved utilizing electrocautery. The flaps were of adequate thickness and viability after inspection. A FlexHD pliable shaped perforated acellular dermal matrix was placed on each lower pole of the breast and sewn to the inferior mammary fold chest wall with interrupted 0 PDS sutures on each side. The superior edge of the FlexHD was sutured to the inferior border of the pectoralis major muscle with a combination of interrupted and running 2-0 Vicryl sutures. The tissue expanders were emptied of air and 500 mL [place] Artoura tissue bottle tester was placed subpectorally and sub ADM. The tabs were sewn to the chest wall with interrupted 2-0 Vicryl suture. A deep 10-Indonesian COLTON drain was placed into each pocket and a 7-mm COLTON drain was placed on each side superficial to the ADM on the right side only and a separate 7-mm Indonesian COLTON drain was placed into the axillary dissection pocket. Each of the drains was sewn at its exit site along the lateral chest wall with a silk stitch. Closure was then facilitated with 2-0 Vicryl at the level of the subcutaneous tissue plane in a running fashion. The skin was excised medially and laterally as well to remove any dog ears. Skin closure was facilitated with interrupted 3-0 Monocryl at the level of the deep dermis and then running 4-0 subcuticular Monocryl stitch and then Dermabond skin glue. The patient had tolerated the procedure well, 180 mL of saline was introduced into each tissue bottle tester via closed sterile technique without any undue tension. Skin flaps were healthy and viable at the termination of the case. She was extubated and transferred to the recovery area in stable condition. JOB# [id number] /PAT
--- NOTE | 2019-12-15 19:43 | Post Anesthesia Evaluation ---
- Post Anesthesia Evaluation Patient Participated: Yes Airway Patent: Yes Stable Respiratory Function: Yes Nausea/Vomiting: No Temp > 96.8F: Yes Pain Manageable: Yes Adequeate Hydration: Yes Anesthesia Complications: No
[2019-12-16] MEDS ORDERED: METOCLOPRAMIDE 10 MG/2 ML INJ IV PRN ×2 (00:59→01:08)
[2019-12-16] MEDS ORDERED: fentaNYL 100 MCG/2 ML INJ IV ONE (01:20)
[2019-12-16] MEDS: DOCUSATE SODIUM 100 MG CAP PO SCH ×2 (05:49→10:04)
--- NOTE | 2019-12-16 07:45 | Progress Note ---
Assessment and Plan This is a 64 year old lady POD#1 right MRM and left total mastectomy for Stage II multifocal right breast cancer of UOQ. 1. Patient with nausea and emesis overnight-->secondary to post anesthesia and resolution this am. 2. Pain in good control. 3. Bilateral chest incisions healing well, skin well perfused; no hematoma and COLTON drains to bulb suction. 4. COLTON drain education. 5. OOB to hallway. 6. D/C planning for later today. Subjective Date of service: 12/16/19 Principal diagnosis: Stage II multifocal right breast cancer Interval history: POD#1 left total mastectomy, right MRM Objective - Constitutional Vitals: Vital Signs - 12hr 12/16/19 00:00 Temperature 98.4 F Pulse Rate 91 H Respiratory 20 Rate Blood Pressure 144/90 [Left] General appearance: Present: no acute distress - EENT Eyes: PERRL ENT: hearing intact, clear oral mucosa, dentition normal Ears: bilateral: normal - Neck Neck: supple, normal ROM - Respiratory Respiratory effort: normal - Breasts Breasts: other (kimani chest incisions healing well, no hematoma, skin well perfused; COLTON drains to bulb suction) - Cardiovascular Rhythm: regular Extremities: no ischemia, pulses intact, pulses symmetrical, No edema, normal temperature, normal color, Full ROM - Gastrointestinal General gastrointestinal: Present: soft, non-tender, non-distended Rectal Exam: deferred - Genitourinary Female genitourinary: deferred - Integumentary Integumentary: clear, warm, dry - Musculoskeletal Musculoskeletal: strength equal bilaterally - Neurologic Neurologic: CNII-XII intact, moves all extremities - Psychiatric Psychiatric: appropriate mood/affect, intact judgment & insight, memory intact, cooperative Medications & Allergies - Medications Allergies/Adverse Reactions: Allergies No Known Allergies Allergy (Verified 12/07/19 15:28) Home Medications: Home Medications Medication Instructions Recorded Confirmed Last Taken Type Cholecalciferol (Vitamin D3) 2,000 unit PO QDAY 10/11/19 12/15/19 12/12/19 09:00 History [Vitamin D3 2,000 UNIT CAP] Cyanocobalamin (Vitamin B-12) 5,000 mcg PO QDAY 10/11/19 12/15/19 12/12/19 09:00 History [Vitamin B-12] Promethazine [Phenergan] 25 mg PO Q6HR PRN 10/11/19 12/15/19 12/12/19 09:00 History HYDROcodone/APAP 5-325 [[place] 1 each PO Q6H PRN #10 tablet 10/14/19 12/15/19 12/12/19 09:00 Rx 5-325 mg TAB] Ascorbic Acid [Vitamin C] 500 mg PO QDAY 12/07/19 12/15/19 12/12/19 09:00 History Active Medications: Generic Name Dose Route Start Last Admin Trade Name Ranjan PRN Reason Stop Dose Admin Acetaminophen 650 mg 12/15/19 17:26 Tylenol PO Q6H PRN Pain MILD(1-3)/Fever >100.5/CARY Diphenhydramine HCl 25 mg 12/15/19 17:26 Benadryl PO Q8H PRN Itching Docusate Sodium 100 mg 12/15/19 22:00 12/16/19 05:49 Colace PO Not Given BID TYRON Fentanyl 100 mcg 12/15/19 06:00 12/15/19 11:17 Sublimaze IV 100 mcg ONCE PRN Administration sedation for nerve block Lactated Ringer's 1,000 mls @ 125 mls/hr 12/15/19 18:00 Lactated Ringers IV DIRECT TYRON Metoclopramide HCl 10 mg 12/15/19 17:26 Reglan PO Q6H PRN Nausea And Vomiting Metoclopramide HCl 10 mg 12/16/19 01:08 Reglan IV Q6H PRN Nausea And Vomiting Morphine Sulfate 2 mg 12/15/19 17:28 12/15/19 23:28 Morphine IV 2 mg Q4H PRN Administration Pain, Moderate (4-6) Ondansetron HCl 4 mg 12/15/19 17:26 12/15/19 23:27 Zofran IV 4 mg Q8H PRN Administration N/V unrelieved by Reglan Oxycodone/Acetaminophen 2 tab 12/15/19 17:26 Percocet 5/325 PO Q6H PRN Pain, Moderate (4-6) Sodium Chloride 10 ml 12/15/19 17:26 Sodium Chloride Flush Syringe 10 Ml IV PRN PRN LINE FLUSH
--- NOTE | 2019-12-16 08:12 | XRay Report ---
SPECIMEN RADIOGRAPH RIGHT BREAST INDICATION: RT BREAST CA. COMPARISON: 10/04/2019 FINDINGS: 2 biopsy clips are identified within the whole breast specimen. IMPRESSION: 1. Excision of the known cancers.. Signer Name: Guille Maxwell MD Signed: 12/16/2019 8:07 AM Workstation Name: [id number]
[2019-12-16 16:47] VITALS: BP 100/56
== END 2019-12-16 16:33 | disposition home or self-care (01) ==
LOC: OR 10:12 → OB 17:26
PROVIDERS: ADMIT Surgery; ATTEND Surgery
DX: C50.911 Malignant neoplasm of unspecified site of right female breast (principal); R11.2 Nausea with vomiting, unspecified; Z90.12 Acquired absence of left breast and nipple
CPT/HCPCS: 19303; 19357; 38525; 38792; 76098; 78800; 88307; 88309; 88331; 88341; 88342; 96361; 96374; 96375; A9541; C1789; G0378; J0690; J1100; J1170; J1580; J1885; J2250; J2270; J2405; J2704; J3010; J7030; J7120; Q4128; Q9968; 88333; J2765